=== PATIENT | male | born 1965 | race Caucasian/White ===

== ENCOUNTER → 2022-02-06 | Outpatient (CLI) | payer OTHER ==
[~2022-02-06] MED LIST: BUPROPION HCL100 M1 PO; BUSPIRONE HCL15 MG PO; DEPAKOTE500 MG PO; HYDROCHLOROTHIA50 MG PO; INDERAL TAB 4040 MG PO; NORCO 7.5-3251 EACH PO; PROTONIX 20 MG20 MG PO; TRAZODONE HCL100 MG PO
== END ==
LOC: KOH-I 10:24
DX: R10.32 Left lower quadrant pain (principal); N28.1 Cyst of kidney, acquired
CPT/HCPCS: 74176

== ENCOUNTER → 2022-04-02 | Outpatient (CLI) | payer OTHER | LOC: KOH-I 12:13 | DX: M25.532 Pain in left wrist (principal); M79.632 Pain in left forearm; M25.522 Pain in left elbow; M25.512 Pain in left shoulder; M54.50 Low back pain, unspecified; W19.XXXA Unspecified fall, initial encounter | CPT/HCPCS: 72100; 73030; 73080; 73090; 73110 ==